=== PATIENT | male | born 1960 | race Caucasian/White ===

== ENCOUNTER 2023-02-07 13:07 | Emergency (ER) | payer SELFPAY ==
--- NOTE | ~2023-02-07 | XR_ITS ---
EXAMINATION: XR finger 1st RT min 2V INDICATION: Right first finger pain TECHNIQUE: Three views of the right first finger are obtained. COMPARISON: 03/03/2019 FINDINGS: There is a tuft laceration of the right first finger near the distal phalanx. There is a valdivia btle fracture in the tip of the first distal phalanx. There are tiny radiopaque densities in the soft tissues distal to the first distal phalanx which could reflect bone fragments versus other radiopaqu e foreign body. There is mild soft tissue swelling of the first finger with soft tissue gas noted. IMPRESSION: 1. Open tuft fracture of the first distal phalanx with bone fragments versus radiopaque foreign body adjacent to the fracture. Reviewed, dictated and finalized at location B. IMPRESSION: 1. Open tuft fracture of the first distal phalanx with bone fragments versus ra diopaque foreign body adjacent to the fracture.
--- NOTE | 2023-02-07 13:09 | ED.UPPEXIN ---
HPI - Extremity Injury (Upper) General Chief Complaint: Extremity Injury, Upper Stated Complaint: Right Hand Pain Time Seen by Provider: 02/07/23 13:15 Source: patient Mode of arrival: ambulatory Limitations: no limitations History of Present Illness HPI narrative: Silverio is a 62-year-old male patient presenting to the clinic today with complaints of right thumb injury. He reports cut his right distal thumb on a table saw. He reports he was cutting a piece of wood and his thumb went past the guard and the top of the saw blade cut into his distal thumb. Has past crush injury to the right thumb. This happened around 10:00 a.m. this morning. Tetanus shot up-to-date. Bleeding is controlled. Related Data Allergies Allergy/AdvReac Type Severity Reaction Status Date / Time No Known Allergies Allergy Unverified 02/07/23 13:27 Review of Systems Review of Systems: Pertinent positives per HPI. Patient denies any fever, chills, rash, headache, visual changes, dizziness, cough, runny nose, sore throat, shortness of breath, chest pain, palpitations, nausea, vomiting, diarrhea, constipation, abdominal pain, or any urinary issues. PMFSH Comments At the time of my signature, I reviewed and agree with the nursing past medical, surgical, social, and family history. There is no relevant family history pertinent to the patient complaint. Exam Narrative: General: Well-developed, well nourished, in no apparent distress Head: Normocephalic, atraumatic. Cardio: Regular rate and rhythm, s1 and s2 normal, no murmur appreciated. Resp: Clear to auscultation bilaterally, no rhonchi, rales, wheezing or rubs. Musculoskeletal: No deformity, vertical irregular dirty 2 cm laceration to the distal right thumb involving the fingernail, tender to palpation over the distal right thumb, grossly normal range of motion, no sign of tendon disruption, muscle strength strong and equal, peripheral pulse strong, no edema, no cyanosis, normal gait and station Course Course Emergency Course: Portions of this record may have been created with voice recognition software. Level of Care: Express Care Visit Vital Signs Vital signs: Vital Signs Temperature 37.0 C 02/07/23 13:16 Pulse Rate 73 02/07/23 13:16 Respiratory Rate 16 02/07/23 13:16 Blood Pressure 157/93 H 02/07/23 13:16 Pulse Oximetry 97 02/07/23 13:16 Oxygen Delivery Room Air 02/07/23 13:16 Temperature 37.0 C 02/07/23 13:16 Pulse Rate 73 02/07/23 13:16 Respiratory Rate 16 02/07/23 13:16 Blood Pressure 157/93 H 02/07/23 13:16 Pulse Oximetry 97 02/07/23 13:16 Oxygen Delivery Room Air 02/07/23 13:16 Vital signs reviewed Procedures Laceration Laceration 1: Date: 02/07/23 Site: hand (Right distal thumb) Side (If applicable): right Size (cm): 2 Description: linear, irregular and contaminated Depth: simple, single layer Local Anesthetic: lidocaine 1% (Digital block of right thumb was completed in the clinic today using 10 mL of lidocaine without epi) Amount of anesthesia used (mL): 10 Pre-repair: wound explored, irrigated, irrigated extensively and minor debridement ====== Skin Level ====== Skin layer closed with: nylon Size (cm): 4-0 Number of sutures: 7 Technique: simple, interrupted ====== Subcutaneous Layer ====== ====== Muscle Layer ====== ====== Tendon Layer ====== Dressing: Verbal consent obtained for laceration repair. Risk and benefits Verbal consent obtained for laceration repair. Risk and benefits explained and patient voiced understanding. Area was cleansed with Techni care and a 25 gauge needle was then used to instill () ml of 1% lidocaine without epi into the wound edges. Area was prepped and draped using sterile technique. A 4-0 suture on a p needle was used to place () interrupted sutures bringing the wound edges together- w
[2023-02-07 13:16] VITALS: BP 157/93; PULSE 73; RESP 16; TEMP 37; O2SAT 97
--- NOTE | 2023-02-07 13:50 | PC.NURSE ---
1350 suture set up done.
--- NOTE | 2023-02-07 14:05 | PC.NURSE ---
training engineer at bedside doing saline irrigation,
== END 2023-02-07 14:50 | disposition home or self-care (01) ==
PROVIDERS: Emergency Provider Nurse Practitioner Family
DX: S61.111A Laceration without foreign body of right thumb with damage to nail, initial encounter (principal); W27.0XXA Contact with workbench tool, initial encounter; I25.10 Atherosclerotic heart disease of native coronary artery without angina pectoris; Z95.1 Presence of aortocoronary bypass graft
CPT/HCPCS: 12001; 73140; 99213; G0463

== ENCOUNTER 2023-02-14 16:34 | Emergency (ER) | payer SELFPAY ==
[2023-02-14 16:43] VITALS: BP 141/71; PULSE 78; RESP 18; TEMP 37; O2SAT 97
[2023-02-14 16:45] VITALS: BP 141/71; PULSE 78; RESP 18; TEMP 37; O2SAT 97
--- NOTE | 2023-02-14 16:55 | ED.WOUNDLAC ---
HPI - Wound/Laceration General Chief Complaint: Wound/Laceration Stated Complaint: Stitches Removal Time Seen by Provider: 02/14/23 16:49 Source: patient, RN notes reviewed and old records reviewed Mode of arrival: ambulatory Limitations: no limitations History of Present Illness HPI narrative: Patient presents today requesting removal of the sutures from his right thumb. They were placed on 02/07/2023 after cutting his finger with a saw. States wound is healing fine without any difficulties. Related Data Allergies Allergy/AdvReac Type Severity Reaction Status Date / Time No Known Allergies Allergy Verified 02/14/23 16:45 Review of Systems Review of Systems: CONSTITUTIONAL: Denies body aches, fever, chills, or sweats. EYES: Denies visual changes, redness, or discharge. ENT: Denies rhinorrhea, congestion, sore throat, or otalgia. CARDIOVASCULAR: Denies chest pain, palpitations, or edema. RESPIRATORY: Denies cough or dyspnea. GASTROINTESTINAL: Denies abdominal pain, nausea, vomiting, or diarrhea. GENITOURINARY: Denies dysuria or hematuria. SKIN: Denies rash, itching. + right thumb wound MUSCULOSKELETAL: Denies back pain, joint pain, or myalgia. NEUROLOGIC: Denies headache, numbness, tingling, or weakness. PSYCH: Denies depression or anxiety. PMFSH Comments At time of signature, I have reviewed and agree with nursing past medical, surgical, social and family history unless otherwise noted. Please see nursing chart for further information. There is no relevant family history pertinent to the presenting complaint Exam Narrative: GENERAL: Well-appearing, well-nourished, and in no acute distress. HEAD: Normocephalic, atraumatic. EYES: EOMI. No redness or drainage. Conjunctivae normal. ENT: Mucous membranes pink and moist. NECK: Normal AROM. CHEST: No respiratory distress. EXTREMITIES: Normal range of motion. No edema. SKIN: Warm, dry, no rash. Capillary refill normal. Normal skin turgor. Seven intact sutures to the distal aspect of the right thumb. No erythema, edema noted. Wound seems to be healing normally. NEURO: No focal deficits. Alert and oriented x3. Gait steady. PSYCH: Normal affect. No signs of depression or anxiety. Course Course Level of Care: Express Care Visit Vital Signs Vital signs: Vital Signs Temperature 98.6 F 02/14/23 16:43 Pulse Rate 78 02/14/23 16:43 Respiratory Rate 18 02/14/23 16:43 Blood Pressure 141/71 H 02/14/23 16:43 Pulse Oximetry 97 02/14/23 16:43 Oxygen Delivery Room Air 02/14/23 16:43 Temperature 98.6 F 02/14/23 16:45 Pulse Rate 78 02/14/23 16:45 Respiratory Rate 18 02/14/23 16:45 Blood Pressure 141/71 H 02/14/23 16:45 Pulse Oximetry 97 02/14/23 16:45 Oxygen Delivery Room Air 02/14/23 16:45 Reviewed. Pt has been instructed to follow up with his PCP regarding his elevated blood pressure today. Procedures Other Procedure Procedure 1: Other Procedure: Seven intact sutures removed from patient's right thumb. Wound healing well. Patient tolerated procedure well. MDM - Wound/Laceration MDM Narrative Medical decision making narrative: Sutures removed. No prescription medications indicated at this time. Anticipatory guidance given. Differential Diagnosis Differential diagnosis: Likely laceration and other (Suture removal) Critical Care Time Critical Care Time Critical Care Time: No Discharge Plan Discharge Clinical Impression: Visit for suture removal Patient Disposition: Home, Self-Care Condition: Stable Instructions: Stitches Removal (ED) Additional Instructions: Your sutures have been removed. Your wound seems to be healing well. Continue to wash with soap and water. Monitor for any signs of infection and see your doctor if you note any. Your blood pressure was elevated above 120/80 today at Urgent Care. This puts you above the threshold for follow up. Please schedule a followup v
== END 2023-02-14 17:02 | disposition home or self-care (01) ==
PROVIDERS: Emergency Provider Nurse Practitioner; PCP Student in an Organized Health Care Education/Training Program
DX: S61.011D Laceration without foreign body of right thumb without damage to nail, subsequent encounter (principal); W27.0XXD Contact with workbench tool, subsequent encounter; I25.10 Atherosclerotic heart disease of native coronary artery without angina pectoris; Z95.1 Presence of aortocoronary bypass graft
CPT/HCPCS: 99211; G0463